=== PATIENT | male | born 1990 | race Caucasian/White ===

== ENCOUNTER 2017-04-20 21:01 | Emergency (ER) | payer SELFPAY ==
[2017-04-20 21:17] VITALS: BP 117/64
--- NOTE | 2017-04-20 23:54 | ER Document Report ---
ED General - General Chief Complaint: Knee Injury Stated Complaint: LEFT KNEE PAIN Time Seen by Provider: 04/20/17 23:49 Mode of Arrival: Ambulatory Information source: Patient Notes: 26-year-old male presents with complaints of knee pain. Patient notes that the pain is been ongoing for 1.5 weeks worsened with movement. Patient denies any traumatic injury TRAVEL OUTSIDE OF THE [place] IN LAST 30 DAYS: No - HPI Onset: Other Onset/Duration: Persistent Quality of pain: Achy Severity: Mild Pain Level: 1 Associated symptoms: Body/muscle aches Exacerbated by: Movement Relieved by: Denies Similar symptoms previously: Yes Recently seen / treated by doctor: Yes - Patient seen at urgent care knee brace given Past Medical History - Social History Smoking Status: Never Smoker Cigarette use (# per day): No Chew tobacco use (# tins/day): No Smoking Education Provided: No Family History: Arthritis, CAD, CVA, DM, Hyperlipidemia, Hypertension, Malignancy Patient has suicidal ideation: No Patient has homicidal ideation: No Renal/ Medical History: Denies: Hx Peritoneal Dialysis Musculoskeltal Medical History: Reports Hx Musculoskeletal Trauma Traumatic Medical History: Reports: Hx Fractures - Immunizations Hx Diphtheria, Pertussis, Tetanus Vaccination: Yes - 2013 Review of Systems - Review of Systems Notes: REVIEW OF SYSTEMS: CONSTITUTIONAL : Denies fever, chills, or sweats. Denies recent illness. EENT: Denies eye, ear, throat, or mouth pain or symptoms. Denies nasal or sinus congestion or discharge. Denies throat, tongue, or mouth swelling or difficulty swallowing. CARDIOVASCULAR: Denies chest pain. Denies palpitations or racing or irregular heart beat. Denies ankle edema. RESPIRATORY: Denies cough, cold, or chest congestion. Denies shortness of breath, difficulty breathing, or wheezing. GASTROINTESTINAL: Denies abdominal pain or distention. Denies nausea, vomiting , or diarrhea. Denies blood in vomitus, stools, or per rectum. Denies black, tarry stools. Denies constipation. GENITOURINARY: Denies difficulty urinating, painful urination, burning, frequency, blood in urine, or discharge. MUSCULOSKELETAL: Admits to knee pain SKIN: Denies rash, lesions or sores. HEMATOLOGIC : Denies easy bruising or bleeding. LYMPHATIC: Denies swollen, enlarged glands. NEUROLOGICAL: Denies confusion or altered mental status. Denies passing out or loss of consciousness. Denies dizziness or lightheadedness. Denies headache. Denies weakness or paralysis or loss of use of either side. Denies problems with gait or speech. Denies sensory loss, numbness, or tingling. Denies seizures. PSYCHIATRIC: Denies anxiety or stress. Denies depression, suicidal ideation, or homicidal ideation. ALL OTHER SYSTEMS REVIEWED AND NEGATIVE. Dictation was performed using [employer] voice recognition software PHYSICAL EXAMINATION: GENERAL: Well-appearing, well-nourished and in no acute distress. HEAD: Atraumatic, normocephalic. EYES: Pupils equal round and reactive to light, extraocular movements intact, sclera anicteric, conjunctiva are normal. ENT: Nares patent, oropharynx clear without exudates. Moist mucous membranes. NECK: Normal range of motion, supple without lymphadenopathy LUNGS: Breath sounds clear to auscultation bilaterally and equal. No wheezes rales or rhonchi. HEART: Regular rate and rhythm without murmurs ABDOMEN: Soft, nontender, nondistended abdomen. No guarding, no rebound. No masses appreciated. Musculoskeletal: Full range of motion with no laxity small effusion noted on palpation NEUROLOGICAL: Cranial nerves grossly intact. Normal speech, normal gait. Normal sensory, motor exams PSYCH: Normal mood, normal affect. SKIN: Warm, Dry, normal turgor, no rashes or lesions noted. Physical Exam - Vital signs Vitals: Temp Pulse Resp BP Pulse Ox 97.4 F 86 16 117/64 96 04/20/17 21:16 04/20/17 21:16 04/20/17 21:16 04/20/17 21:16 04/20/17 21:16 Course - Re-evaluation Re-evalutation: 04/21/17 04:13 Patient has probable ligamentous injury, otherwise he is able to ambulate with no difficulty this does not appear to be a bony injury. He will be given anti- inflammatories and follow-up with orthopedics if symptoms do not improve After performing a Medical Screening Examination, I estimate there is LOW risk for INTRACRANIAL HEMORRHAGE, UNSTABLE SPINE FRACTURE, CENTRAL CORD SYNDROME, CAUDA EQUINA, THORACIC AORTIC DISSECTION, PNEUMOTHORAX, PERFORATED BOWEL, RUPTURED ABDOMINAL AORTIC ANEURYSM, ACUTE TENDON RUPTURE, COMPARTMENT SYNDROME, or OPEN FRACTURE, thus I consider the discharge disposition reasonable. Also, there is no evidence or peritonitis, sepsis, or toxicity. I have reevaluated this patient multiple times and no significant life threatening changes are noted. The patient and I have discussed the diagnosis and risks, and we agree with discharging home to follow-up with their primary doctor with the understanding that symptoms and presentations can change. We also discussed returning to the Emergency Department immediately if new or worsening symptoms occur. We have discussed the symptoms which are most concerning (e.g., bloody stool, fever, changing or worsening pain, vomiting) that necessitate immediate return. - Vital Signs Vital signs: Temp Pulse Resp BP Pulse Ox 97.4 F 86 16 117/64 96 04/20/17 21:16 04/20/17 21:16 04/20/17 21:16 04/20/17 21:16 04/20/17 21:16 Discharge - Discharge Clinical Impression: Left knee pain Qualifiers: Chronicity: acute Qualified Code(s): M25.562 - Pain in left knee Pain of lower extremity Qualifiers: Laterality: left Qualified Code(s): M79.605 - Pain in left leg Condition: Stable Disposition: HOME, SELF-CARE Instructions: Suspected Internal Knee Injury ([facility]) Prescriptions: Naproxen 500 mg PO BID #20 tablet Forms: Return to Work
== END 2017-04-21 00:38 | disposition home or self-care (01) ==
LOC: ER 21:01
DX: M25.562 Pain in left knee (principal); M79.605 Pain in left leg; M79.1 Myalgia; X58.XXXA Exposure to other specified factors, initial encounter
CPT/HCPCS: 99283

== ENCOUNTER 2017-10-05 08:34 | Emergency (ER) | payer SELFPAY ==
--- NOTE | 2017-10-05 09:10 | ER Document Report ---
ED GI/ - General Chief Complaint: Urinary Problem Stated Complaint: URINARY SYMPTOMS Time Seen by Provider: 10/05/17 08:46 Mode of Arrival: Ambulatory Information source: Patient Notes: Patient is a 26-year-old male who presents to the ER today after waking up with burning with urination this morning. Patient denies any fever, chills, abdominal pain, low back pain, rash, itching, abnormal penile discharge. He is not really concerned for any STDs but states "I'd like to get checked." TRAVEL OUTSIDE OF THE [place] IN LAST 30 DAYS: No - Related Data Allergies/Adverse Reactions: No Known Allergies Allergy (Unverified 10/05/17 08:36) Home Medications: Current Home Medications No Home Medications 10/05/17 [History] Past Medical History - General Information source: Patient - Social History Smoking Status: Unknown if Ever Smoked Family History: Arthritis, CAD, CVA, DM, Hyperlipidemia, Hypertension, Malignancy Renal/ Medical History: Denies: Hx Peritoneal Dialysis Musculoskeltal Medical History: Reports Hx Musculoskeletal Trauma Traumatic Medical History: Reports: Hx Fractures - Immunizations Hx Diphtheria, Pertussis, Tetanus Vaccination: Yes - 2013 Review of Systems - Review of Systems Constitutional: No symptoms reported EENT: No symptoms reported Cardiovascular: No symptoms reported Respiratory: No symptoms reported Gastrointestinal: No symptoms reported Genitourinary: See HPI Male Genitourinary: See HPI Musculoskeletal: No symptoms reported Skin: No symptoms reported Hematologic/Lymphatic: No symptoms reported Neurological/Psychological: No symptoms reported Physical Exam - Vital signs Vitals: Temp Pulse Resp BP Pulse Ox 98.3 F 80 18 119/73 97 10/05/17 08:39 10/05/17 08:39 10/05/17 08:39 10/05/17 08:39 10/05/17 08:39 - Notes Notes: PHYSICAL EXAMINATION: GENERAL: Well-appearing and in no acute distress. HEAD: Atraumatic, normocephalic. EYES: Pupils equal round and reactive to light, extraocular movements intact, sclera anicteric, conjunctiva are normal. NECK: Normal range of motion, supple without lymphadenopathy LUNGS: CTAB and equal. No wheezes rales or rhonchi. HEART: Regular rate and rhythm without murmurs ABDOMEN: Soft, no tenderness. No guarding, no rebound BACK: no vertebral tenderness, normal ROM GI/: no CVA tenderness EXTREMITIES: Normal range of motion, no pitting edema. No cyanosis. NEUROLOGICAL: Cranial nerves grossly intact. Normal sensory/motor exams. PSYCH: Normal mood, normal affect. SKIN: Warm, Dry, normal turgor, no rashes or lesions noted Course - Re-evaluation Re-evalutation: 10/05/17 11:25 Urinalysis and gonorrhea chlamydia negative today. I do not have a reason for patient's symptoms. - Vital Signs Vital signs: Temp Pulse Resp BP Pulse Ox 98.3 F 80 18 119/73 97 10/05/17 08:39 10/05/17 08:39 10/05/17 08:39 10/05/17 08:39 10/05/17 08:39 Discharge - Discharge Clinical Impression: Dysuria Condition: Stable Disposition: HOME, SELF-CARE Additional Instructions: Return immediately for any new or worsening symptoms. Follow up with primary care provider, call tomorrow to make followup appointment. Forms: Return to Work Referrals: GALA BONILLA MD [Primary Care Provider] - Follow up as needed
[2017-10-05 10:03] LABS: APPEARANCE,URINE CLEAR; BILIRUBIN,URINE NEGATIVE (NEGATIVE); GLUCOSE, URINE NEGATIVE (NEGATIVE); KETONES,URINE NEGATIVE (NEGATIVE); LEUKOCYTE ESTERASE,URINE NEGATIVE (NEGATIVE); NITRITE,URINE NEGATIVE (NEGATIVE); PROTEIN,URINE NEGATIVE (NEGATIVE); UROBILINOGEN,URINE NEGATIVE mg/dL (<2.0)
[2017-10-05] MEDS ORDERED: AZITHROMYCIN 250 MG TABLET PO ONE (10:36)
[2017-10-05] MEDS ORDERED: CEFTRIAXONE INJ 250 MG VIAL IM ONE (10:36)
[2017-10-05] MEDS ORDERED: LIDOCAINE 1% INJ-PF (10 MG/ML) 30 ML SDV INJ ONE (10:36)
[2017-10-05 11:46] VITALS: BP 121/71
== END 2017-10-05 11:46 | disposition home or self-care (01) ==
LOC: ER 08:34
DX: R30.0 Dysuria (principal); Z20.2 Contact with and (suspected) exposure to infections with a predominantly sexual mode of transmission
CPT/HCPCS: 81001; 87086; 87491; 87591; 99283

== ENCOUNTER 2017-11-04 20:26 | Emergency (ER) | payer SELFPAY ==
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
== END 2017-11-04 22:24 | disposition home or self-care (01) ==
LOC: ER 20:26
DX: S09.90XA Unspecified injury of head, initial encounter (principal); Y04.2XXA Assault by strike against or bumped into by another person, initial encounter; Y92.009 Unspecified place in unspecified non-institutional (private) residence as the place of occurrence of the external cause
CPT/HCPCS: 99283

== ENCOUNTER 2018-05-29 20:08 | Emergency (ER) | payer SELFPAY ==
[2018-05-29] MEDS ORDERED: CEFTRIAXONE INJ 250 MG VIAL IM ONE (22:34)
[2018-05-29] MEDS ORDERED: AZITHROMYCIN 250 MG TABLET PO ONE (22:34)
[2018-05-29] MEDS ORDERED: LIDOCAINE 1% INJ-PF (10 MG/ML) 30 ML SDV INJ ONE (22:34)
--- NOTE | 2018-05-29 22:51 | ER Document Report ---
ED GI/ - General Chief Complaint: Pain With Urination Stated Complaint: DIZZINESS Time Seen by Provider: 05/29/18 22:07 Mode of Arrival: Ambulatory Information source: Patient Notes: 27-year-old male presenting to ED for complaint of pain with urination and a sore to the end of his penis. He states has been there for several weeks. States girlfriend is positive for herpes simplex 2. He states he never told them this until after he developed a sore. He states the sore only hurts now when he takes the scab off but it was painful before. He states he is also having painful urination. TRAVEL OUTSIDE OF THE [place] IN LAST 30 DAYS: No - HPI Patient complains to provider of: Other - Burning with urination and painful sore on penis Onset: Other - Several weeks for the painful sore burning with urination for several days Timing/Duration: Intermittent Quality of pain: Burning Severity at maximum: Moderate Severity in ED: Mild Pain Level: 2 Location: Other - Painful sore on the penis that is drying up now, also painful burning with urination Associated symptoms: Other - Pain with urination and pain. Sore on end of penis. He states it is drying up now but it was more painful girlfriend positive for herpes simplex 2 he states Exacerbated by: Other - Urination Relieved by: Denies Similar symptoms previously: Yes Recently seen / treated by doctor: No - Related Data Allergies/Adverse Reactions: No Known Allergies Allergy (Unverified 10/05/17 08:36) Past Medical History - General Information source: Patient - Social History Smoking Status: Current Every Day Smoker Cigarette use (# per day): Yes Chew tobacco use (# tins/day): No Smoking Education Provided: Yes - 4 minutes Frequency of alcohol use: Occasional Drug Abuse: None Lives with: Family Family History: Arthritis, CAD, CVA, DM, Hyperlipidemia, Hypertension, Malignancy Patient has suicidal ideation: No Patient has homicidal ideation: No - Past Medical History Cardiac Medical History: Reports: None Pulmonary Medical History: Reports: None EENT Medical History: Reports: None Neurological Medical History: Reports: None Endocrine Medical History: Reports: None Renal/ Medical History: Reports: None Malignancy Medical History: Reports None GI Medical History: Reports: None Musculoskeletal Medical History: Reports Hx Musculoskeletal Trauma Skin Medical History: Reports None Psychiatric Medical History: Reports: None Traumatic Medical History: Reports: Hx Fractures Infectious Medical History: Reports: None Surgical Hx: Negative Past Surgical History: Reports: None - Immunizations Immunizations up to date: Yes Hx Diphtheria, Pertussis, Tetanus Vaccination: Yes - 2013 Review of Systems - Review of Systems Constitutional: No symptoms reported EENT: No symptoms reported Cardiovascular: No symptoms reported Respiratory: No symptoms reported Gastrointestinal: No symptoms reported Genitourinary: Burning Male Genitourinary: Other - Painful sore on penis Musculoskeletal: No symptoms reported Skin: No symptoms reported Hematologic/Lymphatic: No symptoms reported Neurological/Psychological: No symptoms reported -: Yes All other systems reviewed and negative Physical Exam - Vital signs Vitals: Temp Pulse Resp BP Pulse Ox 98.8 F 84 14 120/80 98 05/29/18 20:25 05/29/18 20:25 05/29/18 20:25 05/29/18 20:25 05/29/18 20:25 Interpretation: Normal - General General appearance: Appears well, Alert - HEENT Head: Normocephalic, Atraumatic Eyes: Normal Pupils: PERRL - Respiratory Respiratory status: No respiratory distress Chest status: Nontender Breath sounds: Normal Chest palpation: Normal - Cardiovascular Rhythm: Regular Heart sounds: Normal auscultation Murmur: No - Abdominal Inspection: Normal Distension: No distension Bowel sounds: Normal Tenderness: Nontender Organomegaly: No organomegaly - Genitourinary Tenderness: Lesions - End of penis Cremasteric reflex: Normal Scrotum: Normal - Back Back: Normal, Nontender - Extremities General upper extremity: Normal inspection, Nontender, Normal color, Normal ROM , Normal temperature General lower extremity: Normal inspection, Nontender, Normal color, Normal ROM , Normal temperature, Normal weight bearing. No: Isiah's sign - Neurological Neuro grossly intact: Yes Cognition: Normal Orientation: AAOx4 Ana Coma Scale Eye Opening: Spontaneous Berkley Coma Scale Verbal: Oriented Berkley Coma Scale Motor: Obeys Commands Ana Coma Scale Total: 15 Speech: Normal Motor strength normal: LUE, RUE, LLE, RLE Sensory: Normal - Psychological Associated symptoms: Normal affect, Normal mood - Skin Skin Temperature: Warm Skin Moisture: Dry Skin Color: Normal Course - Re-evaluation Re-evalutation: 05/30/18 02:38 Patient was treated with Rocephin and azithromycin while in the emergency room as he did not want to wait for the results for his GC and chlamydia. He did call back about 12 toadied 12:45 and was given the results of his GC and chlamydia which were negative. - Vital Signs Vital signs: Temp Pulse Resp BP Pulse Ox 98.7 F 70 14 135/73 H 100 05/29/18 23:30 05/29/18 23:30 05/29/18 20:25 05/29/18 23:30 05/29/18 23:30 Discharge - Discharge Clinical Impression: Painful urination, Herpetic type lesion to penis Condition: Stable Disposition: HOME, SELF-CARE Additional Instructions: Urethritis You have urethritis, an infection of the urethra. The usual symptoms are pain on urination and discharge. The infection is often caused by gonorrhea or chlamydia. Treatment is antibiotics. In addition, any sexual contacts should be evaluated by a physician as soon as possible. As this infection can be transmitted sexually, refrain from sexual activity until the infection is confirmed as healed by your physician. If gonorrhea or chlamydia is found on culture, the health department must be notified. Call the doctor at once if you develop difficulty passing your urine, high fever, rash, joint swelling, or other new symptoms. Herpes Simplex Your lesion appears to be a herpes simplex lesion. The herpes ("cold sore ") virus usually infects the areas around the mouth. However, it can cause infection on any skin surface. It's particularly dangerous if infection occurs in the eye. On the initial infection, herpes blisters erupt over a large area. There is usually fever and aching. This infection takes about 14 days to resolve. After the initial infection, herpes sores can erupt on small areas (usually the lips), then heal in about a week. Sunburn, fever, local irritation, or even emotions can provoke a "fever blister" attack of herpes. Initial herpes infections can be treated with medication if severe. Subsequent attacks are usually given only local care to reduce symptoms; however , the physician may decide to prescribe anti-viral medication if your case warrants it. Call the doctor if you are worsening in any way. CEPHALOSPORINS: An antibiotic of the cephalosporin class has been prescribed. This type of antibiotic covers a wide variety of infections, including those of the skin, lungs, middle ear, and urinary tract. This antibiotic is somewhat similar to the penicillin family. In rare cases , a person who is allergic to penicillin will also be allergic to this medication. If you have had a severe allergic reaction to penicillin, and have not taken this antibiotic since that time, notify your doctor. Antibiotics which cover many germs ("broad spectrum" antibiotics) are more likely to cause diarrhea or "yeast" infections. Women prone to vaginal yeast problems may suffer an attack after taking this antibiotic. In infants, oral thrush (white spots "stuck" on the cheek) or yeast diaper rash may result. See your doctor if these problems occur. Call the doctor at once if you develop hives, itching, shortness of breath , or lightheadedness. AZITHROMYCIN: Azithromycin (Zithromax) is a broad spectrum antibiotic in the same class as erythromycin. It can treat a variety of bacterial infections, but is most frequently used for respiratory infections. Azithromycin is extremely long-lasting. It accumulates in body tissues and continues to kill bacteria for many days. In order to improve absorption, Azithromycin should be taken at least one hour before or two hours after a meal. It does not have the same strong tendency to upset the stomach as erythromycin and is usually very well tolerated. Patients who have had a rash or other true allergic reactions to erythromycin should not take this medication. Call if you develop gastrointestinal distress, severe diarrhea, rash, hives, itching, or shortness of breath. Can call before 1:00 at [phone] for your results or you can call tomorrow at [phone] FOLLOW-UP CARE: If you have been referred to a physician for follow-up care, call the physician s office for an appointment as you were instructed or within the next two days. If you experience worsening or a significant change in your symptoms, notify the physician immediately or return to the Emergency Department at any time for re-evaluation. Forms: Return to Work Referrals: GALA BONILLA MD [Primary Care Provider] - Follow up as needed
[2018-05-29 23:06] LABS: APPEARANCE,URINE CLEAR; BILIRUBIN,URINE NEGATIVE (NEGATIVE); COLOR,URINE YELLOW; GLUCOSE, URINE NEGATIVE (NEGATIVE); KETONES,URINE NEGATIVE (NEGATIVE); LEUKOCYTE ESTERASE,URINE NEGATIVE (NEGATIVE); NITRITE,URINE NEGATIVE (NEGATIVE); PROTEIN,URINE NEGATIVE (NEGATIVE); UROBILINOGEN,URINE NEGATIVE mg/dL (<2.0)
[2018-05-29 23:32] VITALS: BP 135/73
[2018-05-30 00:22] LABS: CHLAM PCR NOT DETECTED (NOT DETECT); GON PCR NOT DETECTED (NOT DETECT)
== END 2018-05-29 23:33 | disposition home or self-care (01) ==
LOC: ER 20:08
DX: N48.89 Other specified disorders of penis (principal); R30.0 Dysuria; Z20.828 Contact with and (suspected) exposure to other viral communicable diseases; F17.210 Nicotine dependence, cigarettes, uncomplicated; Z71.6 Tobacco abuse counseling
CPT/HCPCS: 99283; 96372; 81001; 87491; 87591; J3490; J0696

== ENCOUNTER 2019-06-05 18:21 | Emergency (ER) | payer OTHER ==
[2019-06-05] MEDS ORDERED: ACETAMINOPHEN 325 MG TABLET PO ONE (19:04)
--- NOTE | 2019-06-05 19:10 | ER Document Report ---
ED Medical Screen (RME) - General Chief Complaint: Fever Stated Complaint: DUST INHALATION Time Seen by Provider: 06/05/19 19:02 Primary Care Provider: GALA BONILLA MD [Primary Care Provider] - Follow up as needed Mode of Arrival: Ambulatory Information source: Patient Notes: 28-year-old male presented to ED for complaint of fever chills body aches with fevers up to as high as 104 and at this time his temperature is 101.2. His pulse was 107. He states he was working at [employer] on Sunday and thinks he might of got some of it in his lungs. He states by Sunday night Sunday he had a temperature of 104. He states it is been at high multiple times since then he has been using Tylenol and Motrin every 4 hours. He is alert oriented respirations regular and unlabored at this time. He states he smokes a pack a day and drinks a beer or 2 weekly. He states he has not been to a doctor for the symptoms. I have greeted and performed a rapid initial assessment of this patient. A comprehensive ED assessment and evaluation of the patient, analysis of test results and completion of medical decision making process will be conducted by an additional ED providers. Dictation of this chart was performed using voice recognition software; therefore, there may be some unintended grammatical errors. TRAVEL OUTSIDE OF THE [place] IN LAST 30 DAYS: No - Related Data Allergies/Adverse Reactions: No Known Allergies Allergy (Verified 06/05/19 18:22) Past Medical History Renal/ Medical History: Denies: Hx Peritoneal Dialysis Musculoskeltal Medical History: Reports Hx Musculoskeletal Trauma Traumatic Medical History: Reports: Hx Fractures - Immunizations Immunizations up to date: Yes Hx Diphtheria, Pertussis, Tetanus Vaccination: Yes - 2013 Physical Exam - Vital signs Vitals: Temp Pulse Resp BP Pulse Ox 101.2 F H 107 H 18 139/65 H 98 06/05/19 18:25 06/05/19 18:25 06/05/19 18:25 06/05/19 18:25 06/05/19 18:25 Course - Vital Signs Vital signs: Temp Pulse Resp BP Pulse Ox 101.2 F H 107 H 18 139/65 H 98 06/05/19 18:25 06/05/19 18:25 06/05/19 18:25 06/05/19 18:25 06/05/19 18:25 Doctor's Discharge - Discharge Referrals: GALA BONILLA MD [Primary Care Provider] - Follow up as needed
[2019-06-05] MEDS: NORMAL SALINE 1000 ML 1,000 ML IV PRN ×2 (19:37→21:50)
--- NOTE | 2019-06-05 19:43 | RADIOLOGY REPORT (SQ) ---
EXAM DESCRIPTION: CHEST 2 VIEWS COMPLETED DATE/TIME: 06/05/2019 7:32 pm REASON FOR STUDY: fever COMPARISON: None. EXAM PARAMETERS: NUMBER OF VIEWS: two views TECHNIQUE: Digital Frontal and Lateral radiographic views of the chest acquired. RADIATION DOSE: NA LIMITATIONS: none FINDINGS: LUNGS AND PLEURA: No opacities, masses or pneumothorax. No pleural effusion. MEDIASTINUM AND HILAR STRUCTURES: No masses or contour abnormalities. HEART AND VASCULAR STRUCTURES: Heart normal size. No evidence for failure. BONES: No acute findings. HARDWARE: None in the chest. OTHER: No other significant finding. IMPRESSION: NO ACUTE RADIOGRAPHIC FINDING IN THE CHEST. TECHNICAL DOCUMENTATION: JOB ID: [id number] [place]-72 2010 [employer]- All Rights Reserved Reading location - IP/workstation name: [email or web address]
[2019-06-05 19:59] LABS: VENOUS BLOOD BASE EXCESS 3.4 mmol/L; VENOUS BLOOD HCO3 30.9 mmol/L (20-32); VENOUS BLOOD PCO2 58.4 mmHg (35-63); VENOUS BLOOD PH 7.34 (7.30-7.42)
[2019-06-05 20:00] LABS: ABSOLUTE EOSINOPHILS # (AUTO) 0.1 10^3/uL (0.0-0.6); ABSOLUTE MONOCYTES (AUTO) 0.9 10^3/uL (0.1-1.4); ABSOLUTE NEUT (AUTO) 8.5 10^3/uL (1.7-8.2); BASOPHILS % (AUTO) 0.4 % (0-2); EOSINOPHILS % (AUTO) 0.5 % (0-6); HEMATOCRIT 43.8 % (37.9-51.0); HEMOGLOBIN 14.7 g/dL (13.5-17.0); LYMPHOCYTES % (AUTO) 9.2 % (13-45); MEAN CORPUSCULAR HEMOGLOBIN 28.2 pg (27.0-33.4); MEAN CORPUSCULAR HGB CONC 33.7 g/dL (32.0-36.0); MEAN CORPUSCULAR VOLUME 84 fl (80-97); MONOCYTES % (AUTO) 8.8 % (3-13); PLATELET COUNT 209 10^3/uL (150-450); RED BLOOD COUNT 5.22 10^6/uL (4.35-5.55); RED CELL DISTRIBUTION WIDTH 14.2 % (11.5-14.0); SEGMENTED NEUTROPHILS % (AUTO) 81.1 % (42-78); TOTAL CELLS COUNTED % (AUTO) 100 %; WHITE BLOOD COUNT 10.5 10^3/uL (4.0-10.5)
[2019-06-05 20:02] LABS: APPEARANCE,URINE CLEAR; BILIRUBIN,URINE NEGATIVE (NEGATIVE); COLOR,URINE YELLOW; GLUCOSE, URINE NEGATIVE (NEGATIVE); KETONES,URINE NEGATIVE (NEGATIVE); LEUKOCYTE ESTERASE,URINE NEGATIVE (NEGATIVE); NITRITE,URINE NEGATIVE (NEGATIVE); PROTEIN,URINE NEGATIVE (NEGATIVE); URINE SPECIFIC GRAVITY 1.019; UROBILINOGEN,URINE NEGATIVE mg/dL (<2.0)
[2019-06-05 20:14] LABS: INTERNATIONAL RATION (INR) 1.06; PROTHROMBIN TIME 13.9 SEC (11.4-15.4)
[2019-06-05 20:16] LABS: ADD MANUAL MICROSCOPIC YES; BACTERIA,URINE TRACE /HPF; RBC,URINE RARE /HPF; WBC,URINE RARE /HPF
[2019-06-05 20:17] LABS: ALBUMIN 4.7 g/dL (3.5-5.0); ALKALINE PHOSPHATASE 62 U/L (38-126); ANION GAP 10 (5-19); ASPARTATE AMINO TRANSFERASE 26 U/L (17-59); BILIRUBIN,DIRECT 0.2 mg/dL (0.0-0.4); BILIRUBIN,TOTAL 0.3 mg/dL (0.2-1.3); BLOOD UREA NITROGEN 10 mg/dL (7-20); CALCIUM 9.5 mg/dL (8.4-10.2); CARBON DIOXIDE 31 mmol/L (22-30); CHLORIDE 98 mmol/L (98-107); GLUCOSE 86 mg/dL (75-110); POTASSIUM 4.2 mmol/L (3.6-5.0)
--- NOTE | 2019-06-05 22:09 | ER Document Report ---
ED General - General Chief Complaint: Fever Stated Complaint: DUST INHALATION Time Seen by Provider: 06/05/19 19:02 Primary Care Provider: GALA BONILLA MD [Primary Care Provider] - Follow up as needed Mode of Arrival: Ambulatory Information source: Patient, [facility] Records Notes: 28-year-old male with no reported past medical history presents with fever chills body aches with fevers up to as high as 104 and at this time his temperature is 101.2. His pulse was 107. He states he was working at [employer] on Sunday and thinks he might of got some of it in his lungs. He states by Sunday night Sunday morning he had a temperature of 104. He states it is been at high multiple times since then he has been using Tylenol and Motrin every 4 hours. Patient reports one episode of nausea and vomiting that occurred just prior to arrival. He also states that he has experienced intermittent fevers every 4 months for the last year. He has been seen by his primary care physician for this. Patient denies any tick bites, bug bites, rash, cough, ear pain, sore throat, headache, abdominal pain, diarrhea, dysuria, sick contacts. He does report that he has been out of work all week. TRAVEL OUTSIDE OF THE [place] IN LAST 30 DAYS: No - HPI Onset: Last week Onset/Duration: Gradual, Persistent Quality of pain: Achy Severity: Mild Associated symptoms: Body/muscle aches, Fever, Nausea, Vomiting. denies: Nonproductive cough, Productive cough, Diarrhea, Earache, Shortness of breath, Sore throat Exacerbated by: Denies Relieved by: Denies Similar symptoms previously: Yes Recently seen / treated by doctor: Yes - Related Data Allergies/Adverse Reactions: No Known Allergies Allergy (Verified 06/05/19 18:22) Past Medical History - General Information source: Patient - Social History Smoking Status: Current Every Day Smoker Cigarette use (# per day): Yes - 15 Smoking Education Provided: Yes - Smoking cessation counseling was provided for 4 minutes at the bedside Frequency of alcohol use: Occasional Drug Abuse: None Lives with: Alone Family History: Arthritis, CAD, CVA, DM, Hyperlipidemia, Hypertension, Malignancy Patient has suicidal ideation: No Patient has homicidal ideation: No - Medical History Medical History: Negative Renal/ Medical History: Denies: Hx Peritoneal Dialysis Musculoskeletal Medical History: Reports Hx Musculoskeletal Trauma Traumatic Medical History: Reports: Hx Fractures - Immunizations Immunizations up to date: Yes Hx Diphtheria, Pertussis, Tetanus Vaccination: Yes - 2013 Review of Systems - Review of Systems Constitutional: Fever, Malaise EENT: denies: Difficulty swallowing Cardiovascular: denies: Chest pain, Dizziness Respiratory: denies: Cough, Short of breath Gastrointestinal: Nausea, Vomiting. denies: Abdominal pain, Diarrhea, Poor appetite, Poor fluid intake Genitourinary: denies: Dysuria, Flank pain Musculoskeletal: Muscle pain Skin: denies: Rash Hematologic/Lymphatic: Swollen glands Neurological/Psychological: denies: Headaches -: Yes All other systems reviewed and negative Physical Exam - Vital signs Vitals: Temp Pulse Resp BP Pulse Ox 101.2 F H 107 H 18 139/65 H 98 06/05/19 18:25 06/05/19 18:25 06/05/19 18:25 06/05/19 18:25 06/05/19 18:25 - Notes Notes: PHYSICAL EXAMINATION: GENERAL: Well-appearing, well-nourished and in no acute distress. HEAD: Atraumatic, normocephalic. EYES: Pupils equal round and reactive to light, extraocular movements intact, sclera anicteric, conjunctiva are normal. ENT: Nares patent, mild tonsillar swelling with left-sided exudate. Moist mucous membranes. NECK: Normal range of motion, supple without lymphadenopathy LUNGS: Breath sounds clear to auscultation bilaterally and equal. No wheezes rales or rhonchi. HEART: Regular rate and rhythm without murmurs ABDOMEN: Soft, nontender, nondistended abdomen. No guarding, no rebound. No masses appreciated. Musculoskeletal: Normal range of motion, no pitting or edema. No cyanosis. NEUROLOGICAL: Cranial nerves grossly intact. Normal speech, normal gait. Nor mal sensory, motor exams PSYCH: Normal mood, normal affect. SKIN: Warm, Dry, normal turgor, no rashes or lesions noted. Course - Re-evaluation Re-evalutation: 06/05/19 22:44 Laboratory 06/05/19 06/05/19 06/05/19 19:03 19:07 19:38 WBC 10.5 RBC 5.22 Hgb 14.7 Hct 43.8 MCV 84 MCH 28.2 MCHC 33.7 RDW 14.2 H Plt Count 209 Seg Neutrophils % 81.1 H Lymphocytes % 9.2 L Monocytes % 8.8 Eosinophils % 0.5 Basophils % 0.4 Absolute Neutrophils 8.5 H Absolute Lymphocytes 1.0 Absolute Monocytes 0.9 Absolute Eosinophils 0.1 Absolute Basophils 0.0 PT INR VBG pH 7.34 VBG pCO2 58.4 VBG HCO3 30.9 VBG Base Excess 3.4 Sodium Potassium Chloride Carbon Dioxide Anion Gap BUN Creatinine Est GFR ( Amer) Est GFR (Non-Af Amer) Glucose POC Glucose Lactic Acid Calcium Total Bilirubin Direct Bilirubin Neonat Total Bilirubin Neonat Direct Bilirubin Neonat Indirect Bili AST ALT Alkaline Phosphatase Total Protein Albumin Urine Color Urine Appearance Urine pH Ur Specific [place] Urine Protein Urine Glucose (UA) Urine Ketones Urine Blood Urine Nitrite Urine Bilirubin Urine Urobilinogen Ur Leukocyte Esterase Urine RBC Urine WBC Urine Bacteria Urine Mucus Urine Ascorbic Acid Group A Strep Rapid NEGATIVE 06/05/19 06/05/19 06/05/19 19:38 19:38 19:38 WBC RBC Hgb Hct MCV MCH MCHC RDW Plt Count Seg Neutrophils % Lymphocytes % Monocytes % Eosinophils % Basophils % Absolute Neutrophils Absolute Lymphocytes Absolute Monocytes Absolute Eosinophils Absolute Basophils PT 13.9 INR 1.06 VBG pH VBG pCO2 VBG HCO3 VBG Base Excess Sodium 139.3 Potassium 4.2 Chloride 98 Carbon Dioxide 31 H Anion Gap 10 BUN 10 Creatinine 0.86 Est GFR ( Amer) > 60 Est GFR (Non-Af Amer) > 60 Glucose 86 POC Glucose Lactic Acid Calcium 9.5 Total Bilirubin 0.3 Direct Bilirubin 0.2 Neonat Total Bilirubin Not Reportable Neonat Direct Bilirubin Not Reportable Neonat Indirect Bili Not Reportable AST 26 ALT 18 Alkaline Phosphatase 62 Total Protein 7.0 Albumin 4.7 Urine Color YELLOW Urine Appearance CLEAR Urine pH 5.0 Ur Specific [place] 1.019 Urine Protein NEGATIVE Urine Glucose (UA) NEGATIVE Urine Ketones NEGATIVE Urine Blood SMALL H Urine Nitrite NEGATIVE Urine Bilirubin NEGATIVE Urine Urobilinogen NEGATIVE Ur Leukocyte Esterase NEGATIVE Urine RBC RARE Urine WBC RARE Urine Bacteria TRACE Urine Mucus 2+ Urine Ascorbic Acid NEGATIVE Group A Strep Rapid 06/05/19 06/05/19 19:41 19:44 WBC RBC Hgb Hct MCV MCH MCHC RDW Plt Count Seg Neutrophils % Lymphocytes % Monocytes % Eosinophils % Basophils % Absolute Neutrophils Absolute Lymphocytes Absolute Monocytes Absolute Eosinophils Absolute Basophils PT INR VBG pH VBG pCO2 VBG HCO3 VBG Base Excess Sodium Potassium Chloride Carbon Dioxide Anion Gap BUN Creatinine Est GFR ( Amer) Est GFR (Non-Af Amer) Glucose POC Glucose 91 Lactic Acid 1.4 Calcium Total Bilirubin Direct Bilirubin Neonat Total Bilirubin Neonat Direct Bilirubin Neonat Indirect Bili AST ALT Alkaline Phosphatase Total Protein Albumin Urine Color Urine Appearance Urine pH Ur Specific [place] Urine Protein Urine Glucose (UA) Urine Ketones Urine Blood Urine Nitrite Urine Bilirubin Urine Urobilinogen Ur Leukocyte Esterase Urine RBC Urine WBC Urine Bacteria Urine Mucus Urine Ascorbic Acid Group A Strep Rapid Chest X-Ray 06/05/19 19:03 IMPRESSION: NO ACUTE RADIOGRAPHIC FINDING IN THE CHEST. Temp Pulse Resp BP Pulse Ox 99.4 F 107 H 18 116/63 98 06/05/19 21:37 06/05/19 18:25 06/05/19 18:25 06/05/19 22:38 06/05/19 22:38 28-year-old healthy male presents with fever chills and body aches. Vital signs reviewed and patient is initially febrile but after 1 dose of Tylenol his temperature is now 99.4. Septic work-up was initiated and completely within normal limits. Strep test is negative. Patient's fever and myalgias are likely viral. He is well-appearing, tolerating fluids and has no specific complaints. Patient is requesting a note for the entire week that he has called off of work. This was not provided to the patient. Patient encouraged to drink plenty of fluids, use Tylenol and Motrin as needed for fever and follow-up with his primary care physician in the next 3 to 5 days. Patient was evaluated and treated as appropriate for the patient's presenting symptoms and complaint, with consideration of any critical or life threatening conditions that may be associated with their obtained history and exam as noted above. All results were discussed with patient that computer has been a nightmare when it comes to [employer] but that would like 2 weeks ago I that they fixed it. Patient provided the opportunity to ask questions, and express concerns. Patient was educated on treatments based on their presumed diagnosis as noted above. At this time we will discharge the patient with return precautions and follow-up recommendations. Verbal discharge instructions given a the bedside. Medication warnings reviewed. Patient is in agreement with this plan and has verbalized understanding of return precautions. After careful consideration I feel that that patient can be safely discharged from the emergency department, they were advised to followup with a primary care physician in 2-3 days. Dictation on this chart was performed using voice recognition software and may result in unintended grammatical, spelling, syntax or errors. - Vital Signs Vital signs: Temp Pulse Resp BP Pulse Ox 99.4 F 107 H 18 116/65 98 06/05/19 21:37 06/05/19 18:25 06/05/19 18:25 06/05/19 22:01 06/05/19 22:01 - Laboratory Result Diagrams: 06/05/19 19:38 06/05/19 19:38 Laboratory results interpreted by me: 06/05/19 06/05/19 06/05/19 19:38 19:38 19:38 RDW 14.2 H Seg Neutrophils % 81.1 H Lymphocytes % 9.2 L Absolute Neutrophils 8.5 H Carbon Dioxide 31 H Urine Blood SMALL H - Diagnostic Test Radiology reviewed: Image reviewed, Reports reviewed Discharge - Discharge Clinical Impression: Flulike illness, Myalgia Fever Qualifiers: Fever type: unspecified Qualified Code(s): R50.9 - Fever, unspecified Vomiting Qualifiers: Vomiting type: unspecified Vomiting Intractability: non-intractable Nausea presence: with nausea Qualified Code(s): R11.2 - Nausea with vomiting, unspecified Condition: Good Disposition: HOME, SELF-CARE Instructions: Fever ([facility]), Intravenous (IV) Fluids ([facility]), Viral Syndrome ([facility]), Vomiting ([facility]) Additional Instructions: Follow up with your [id number] hours for further care or return to the ED IMMEDIATELY if symptoms worsen or you have any concerns. If you cannot afford to follow up with your primary care physician a list of low cost clinics have been provided at the end of your discharge papers as well. Most prescribed medications have multiple side effects. The safest thing to do is when filling your prescription speak to your pharmacist regarding possible interactions with your normal home medications and over the counter medications such as Ibuprofen, Tylenol, Benadryl. If you experience any symptoms that cause you discomfort or concern you should discontinue the medication immediately and return to the emergency room or call your primary care physician. Prescriptions: Doxycycline Hyclate 100 mg PO BID #14 capsule Ondansetron [Zofran Odt 4 mg Tablet] 1 - 2 tab PO Q4H PRN #15 tab.rapdis PRN Reason: For Nausea/Vomiting Forms: Return to Work, Smoking Cessation Education Referrals: GALA BONILLA MD [Primary Care Provider] - Follow up in 3-5 days
[2019-06-05 22:42] VITALS: BP 116/63
--- NOTE | 2019-06-06 08:16 | EKG REPORT ---
SEVERITY:- NORMAL ECG - SINUS RHYTHM : Confirmed by: Spenser Martinez MD 06-Jun-2019 08:15:30
== END 2019-06-05 22:43 | disposition home or self-care (01) ==
LOC: ER 18:21
DX: R50.9 Fever, unspecified (principal); M79.10 Myalgia, unspecified site; R11.2 Nausea with vomiting, unspecified; R00.0 Tachycardia, unspecified; F17.210 Nicotine dependence, cigarettes, uncomplicated
CPT/HCPCS: 93005; 99406; 99284; 96360; 96361; 36415; 87040; 87070; 87086; 87880; 82962; 85025; 85610; 80053; 81001; 82803; 83605; 71046; 93010; J7030

== ENCOUNTER 2019-12-26 19:08 | Emergency (ER) | payer SELFPAY ==
[2019-12-26 19:14] VITALS: BP 126/77
--- NOTE | 2019-12-26 20:06 | ER Document Report ---
HPI - HPI Time Seen by Provider: 12/26/19 20:00 Pain Level: Denies Context: CHIEF COMPLAINT: Anxiety HPI: 29-year-old male presenting to the emergency department complaining of feelings of anxiety today. No suicidal or homicidal ideation. Patient states that he recently broke up with a girlfriend and is now having nervousness. States he has had this previously where he would have episodes like this once or twice a month has never been officially evaluated for it. Denies abdominal pain nausea or vomiting. Denies shortness of breath. ROS: See HPI - all other systems were reviewed and are otherwise negative Constitutional: no fever Eyes: no drainage, no blurred vision ENT: no runny nose, no sore throat Cardiovascular: + chest pain Resp: no SOB, no cough GI: no vomiting, no diarrhea, no abdominal pain : no dysuria Integumentary: no rash Allergy: no hives Musculoskeletal: no extremity pain or swelling Neurological: no numbness/tingling, no weakness MEDICATIONS: I agree with the patient medications as charted by the RN. ALLERGIES: I agree with the allergies as charted by the RN. PAST MEDICAL HISTORY/PAST SURGICAL HISTORY: Reviewed and agree as charted by RN. SOCIAL HISTORY: Reviewed and agree as charted by RN. FAMILY HISTORY: No significant familial comorbid conditions directly related to patient complaint EXAM: Reviewed vital signs as charted by RN. CONSTITUTIONAL: Alert and oriented and responds appropriately to questions. Well-appearing; well-nourished HEAD: Normocephalic; atraumatic EYES: PERRL; Conjunctivae clear, sclerae non-icteric ENT: normal nose; no rhinorrhea; moist mucous membranes; pharynx without lesions noted, no uvula edema or deviation, no tonsillar hypertrophy, phonation normal NECK: Supple without meningismus; non-tender; no cervical lymphadenopathy, no masses CARD: RRR; no murmurs, no clicks, no rubs, no gallops; symmetric distal pulses RESP: Normal chest excursion without splinting or tachypnea; breath sounds clear and equal bilaterally; no wheezes, no rhonchi, no rales, pulse oximetry 98% on room air not hypoxic ABD/GI: Normal bowel sounds; non-distended; soft, non-tender, no rebound, no guarding; no palpable organomegaly or masses. BACK: The back appears normal and is non-tender to palpation, there is no CVA tenderness EXT: Normal ROM in all joints; non-tender to palpation; no cyanosis, no effusions, no edema SKIN: Normal color for age and race; warm; dry; good turgor; no acute lesions noted NEURO: Moves all extremities equally; Motor and sensory function intact PSYCH: The patient's mood and manner are mildly anxious. Grooming and personal hygiene are appropriate. MDM: 29-year-old male presenting for nervousness and anxiety tonight. I did offer to screen patient medically for thyroid or cardiac issues he states he has slight chest tightness with the anxiety. Patient declines imaging, EKG, lab work at this time. He states that he has had this before and believes it is just anxiety. Patient does have a primary care provider he was encouraged to contact them on Sunday for follow-up. I will place the patient on a short course of Vistaril, he was given medication restrictions and precautions - REPRODUCTIVE Reproductive: DENIES: : Past Medical History - Social History Smoking Status: Current Every Day Smoker Family History: Arthritis, CAD, CVA, DM, Hyperlipidemia, Hypertension, Malignancy Patient has suicidal ideation: No Patient has homicidal ideation: No Renal/ Medical History: Denies: Hx Peritoneal Dialysis Musculoskeletal Medical History: Reports Hx Musculoskeletal Trauma Traumatic Medical History: Reports: Hx Fractures - Immunizations Immunizations up to date: Yes Hx Diphtheria, Pertussis, Tetanus Vaccination: Yes - 2013 [facility] Provider Document - INFECTION CONTROL TRAVEL OUTSIDE OF THE [place] IN LAST 30 DAYS: No Course - Vital Signs Vital signs: Temp Pulse Resp BP Pulse Ox 98.6 F 92 18 126/77 H 97 12/26/19 19:13 12/26/19 19:13 12/26/19 19:13 12/26/19 19:13 12/26/19 19:13 Discharge - Discharge Clinical Impression: Anxiety Condition: Stable Disposition: HOME, SELF-CARE Instructions: Anxiety ([facility]) Additional Instructions: Medication as prescribed. Do not drive if taking Vistaril. Follow-up with primary care provider on Sunday for reevaluation of symptoms Prescriptions: Hydroxyzine Pamoate [Vistaril 25 mg Capsule] 25 mg PO Q6 PRN #30 capsule PRN Reason: Referrals: GALA BONILLA MD [Primary Care Provider] - Follow up as needed
== END 2019-12-26 20:12 | disposition home or self-care (01) ==
LOC: ER 19:08
DX: F41.9 Anxiety disorder, unspecified (principal); R07.9 Chest pain, unspecified; F17.200 Nicotine dependence, unspecified, uncomplicated
CPT/HCPCS: 99283